=== PATIENT | female | born 1985 | race Caucasian/White ===

== ENCOUNTER 2020-01-18 04:50 | Inpatient (IN) | payer BC ==
[~2020-01-18 04:50] MED LIST: Sodium Chloride 0.9% 10 ML Syringe FLUSH PRN; ceFAZolin 2 GM in Premix Bag 1 BAG IV ONE
[2020-01-18] MEDS: Lactated Ringers 1,000 ML IV SCH ×2 (05:30→06:15)
[2020-01-18] MEDS ORDERED: Citric Acid/Sodium Citrate Solution 30 ML Cup PO ONE (06:30)
[2020-01-18] MEDS ORDERED: Metoclopramide 10 MG/2 ML SDV IVPUSH ONE (06:30)
[2020-01-18] MEDS ORDERED: Citric Acid/Sodium Citrate Solution 30 ML Cup ONE (07:06)
[2020-01-18] MEDS ORDERED: Metoclopramide 10 MG/2 ML SDV ONE (07:06)
--- NOTE | 2020-01-18 07:08 | PCM.OPNOTE ---
- General Post-Op/Procedure Note Date of Surgery/Procedure: 01/18/20 Operative Procedure(s): Primary low transverse Findings: Baby girl in breech presentation. Weight of 6 lbs 11 oz. APGARS of 8 & 9. Normal appearance of the uterus, fallopian tubes, and ovaries. Pre Op Diagnosis: 39 0/7 wks. Breech presentation Post-Op Diagnosis: Same Anesthesia Technique: Spinal Primary Surgeon: Pricilla Guallpa Secondary Surgeon: Marly Dhaliwal Anesthesia Provider: Annabelle Regan Reason Perinatal Educator Was Necessary: Speed, safety of procedure Pathology: Cord blood collected. Placenta discarded Fluid Replacement, Intraop: 2,100 Output, Urine Amount: 100 EBL in mLs: 500 Complications: None Condition: Good Free Text/Narrative:: The risks, benefits, indications, potential complications, and alternatives were explained to the patient and informed consent obtained. After induction of anesthesia, the patient was placed in a supine position and then draped and prepped in the usual sterile manner. A Pfannenstiel incision was made and carried down through the subcutaneous tissue to the fascia. Fascial incision was made and extended transversely. The fascia was from the underlying rectus tissue superiorly and inferiorly. The peritoneum was identified and entered. Peritoneal incision was extended longitudinally. The utero-vesical peritoneal reflection was incised transversely and the bladder flap was bluntly freed from the lower uterine segment. A low transverse uterine incision was made sharply with a scalpel and extended bluntly in a cephalocaudad direction. A baby girl was delivered from breech presentation with APGARS as above. After the umbilical cord was clamped and cut cord blood was obtained for evaluation. The placenta was removed intact and appeared normal. The uterus was exteriorized and cleared of clots. The uterine outline, tubes and ovaries appeared normal. The uterine incision was closed with running locked sutures of 0 Vicryl. Hemostasis was obtained with a second imbricating layer of 0 Vicryl in addition to several sutures placed in figure of eight fashion. The uterus was then placed back into the abdomen. The infracolic gutters were cleared of blood clots. The fascia was then reapproximated with running sutures of 0 Vicryl. The subcutaneous tissue was irrigated with sterile warm normal saline, hemostasis obtained with cautery. This layer was also closed with a running 0 Vicryl. The skin was reapproximated with running Subcuticular 4-0 Monocryl sutures. Instrument, sponge, and needle counts were correct prior the abdominal closure and at the conclusion of the case.
[2020-01-18] MEDS ORDERED: ceFAZolin 1 GM Vial ONE (07:09)
[2020-01-18] MEDS ORDERED: Lactated Ringers 2,000 ML ONE (07:09)
[2020-01-18] MEDS ORDERED: Ketorolac 30 MG/ML SDV ONE (07:09)
[2020-01-18] MEDS ORDERED: Oxytocin 10 Units/1 ML SDV ONE (07:09)
[2020-01-18] MEDS ORDERED: Ondansetron 4 MG/2 ML SDV ONE (07:09)
[2020-01-18] MEDS ORDERED: Morphine PF 10 MG/10 ML SDV ONE (07:09)
[2020-01-18] MEDS ORDERED: Oxytocin/Lactated Ringers 10 UNIT/1,000 ML BAG IV SCH (07:30)
[2020-01-18] MEDS ORDERED: Ondansetron 4 MG/2 ML SDV IVPUSH PRN (07:34)
[2020-01-18] MEDS ORDERED: fentaNYL 100 MCG/2 ML SDV IVPUSH PRN (07:34)
[2020-01-18] MEDS ORDERED: diphenhydrAMINE 50 MG/ML SDV IVPUSH PRN ×2 (07:34→09:49)
--- NOTE | 2020-01-18 07:34 | PCM.PREANE ---
Preanesthetic Assessment - Procedure Proposed Procedure: C Section - Anesthesia/Transfusion/Family Hx Anesthesia History: Prior Anesthesia Without Reaction Family History of Anesthesia Reaction: No Transfusion History: Prior Transfusion Without Reaction - Review of Systems General: No Symptoms Pulmonary: No Symptoms Cardiovascular: No Symptoms Gastrointestinal: No Symptoms Neurological: No Symptoms Other: Reports: None - Physical Assessment NPO Status Date: 01/17/20 NPO Status Time: 22:00 Vital Signs: Last Vital Signs Temp 36.8 C 01/18/20 05:13 Pulse 81 01/18/20 05:13 Resp 16 01/18/20 05:13 BP 125/78 01/18/20 05:13 Pulse Ox 98 01/18/20 05:13 Height: 1.73 m Weight: 85.094 kg ASA Class: 2 Mental Status: Alert & Oriented x3 Airway Class: Mallampati = 1 Dentition: Reports: Normal Dentition Thyro-Mental Finger Breadths: 3 Mouth Opening Finger Breadths: 3 ROM/Head Extension: Full Lungs: Clear to Auscultation, Normal Respiratory Effort Cardiovascular: Regular Rate, Regular Rhythm - Lab Values: Laboratory Last Values WBC 9.60 K/mm3 (3.98-10.04) 01/18/20 05:45 RBC 3.62 M/mm3 (3.98-5.22) L 01/18/20 05:45 Hgb 11.1 gm/dl (11.2-15.7) L 01/18/20 05:45 Hct 34.1 % (34.1-44.9) 01/18/20 05:45 MCV 94.2 fl (79.4-94.8) 01/18/20 05:45 MCH 30.7 pg (25.6-32.2) 01/18/20 05:45 MCHC 32.6 g/dl (32.2-35.5) 01/18/20 05:45 RDW Std Deviation 43.8 fL (36.4-46.3) 01/18/20 05:45 Plt Count 159 K/mm3 (182-369) L 01/18/20 05:45 MPV 11.7 fl (9.4-12.3) 01/18/20 05:45 Neut % (Auto) 72.6 % (34.0-71.1) H 01/18/20 05:45 Lymph % (Auto) 17.0 % (19.3-51.7) L 01/18/20 05:45 [place] % (Auto) 8.6 % (4.7-12.5) 01/18/20 05:45 Eos % (Auto) 1.0 (0.7-5.8) 01/18/20 05:45 Baso % (Auto) 0.4 % (0.1-1.2) 01/18/20 05:45 Neut # (Auto) 6.96 K/mm3 (1.56-6.13) H 01/18/20 05:45 Lymph # (Auto) 1.63 K/mm3 (1.18-3.74) 01/18/20 05:45 [place] # (Auto) 0.83 K/mm3 (0.24-0.36) H 01/18/20 05:45 Eos # (Auto) 0.10 K/mm3 (0.04-0.36) 01/18/20 05:45 Baso # (Auto) 0.04 K/mm3 (0.01-0.08) 01/18/20 05:45 SARS-CoV-2 RNA (NGUYEN) Negative (NEGATIVE) 01/18/20 05:00 - Allergies Allergies/Adverse Reactions: Allergies Allergy/AdvReac Type Severity Reaction Status Date / Time latex Allergy Hives Verified 01/18/20 05:48 - Anesthesia Plan Pre-Op Medication Ordered: Antacids - Acknowledgements Anesthesia Type Planned: Spinal Pt an Appropriate Candidate for the Planned Anesthesia: Yes Alternatives and Risks of Anesthesia Discussed w Pt/Guardian: Yes Pt/Guardian Understands and Agrees with Anesthesia Plan: Yes PreAnesthesia Questionnaire MOBILITY ENGINEER History: Reports: Other OB/BYN History: Breech presentation- failed version. - SUBSTANCE USE Tobacco Use Status *Q: Never Tobacco User Tobacco Use Within Last Twelve Months: No Second Hand Smoke Exposure: No Recreational Drug Use History: No - HOME MEDS Home Medications: Home Meds Pnv No.95/Ferrous Fum/Folic AC [ Tablet] 1 tab PO DAILY 01/17/20 [History] - CURRENT (IN HOUSE) MEDS Current Meds: Current Medications Oxytocin/Lactated Ringer's (Pitocin In Lr 10 Units/1,000 Ml) 10 unit in 1,000 mls @ 100 mls/hr IV ASDIRECTED RODOLFO; Protocol Lactated Ringer's (Ringers, Lactated) 1,000 mls @ 125 mls/hr IV ASDIRECTED RODOLFO Last Admin: 01/18/20 06:15 Dose: 900 mls/hr Documented by: Sodium Chloride (Saline Flush) 10 ml FLUSH ASDIRECTED PRN PRN Reason: Keep Vein Open Discontinued Medications Cefazolin Sodium (Ancef) Confirm Administered Dose 2 gm .ROUTE .STK-MED ONE Stop: 01/18/20 07:10 Citric Acid/Sodium Citrate (Bicitra Solution) 30 ml PO ONETIME ONE Stop: 01/18/20 06:31 Last Admin: 01/18/20 07:11 Dose: 30 ml Documented by: Citric Acid/Sodium Citrate (Bicitra Solution) Confirm Administered Dose 30 ml .ROUTE .STK-MED ONE Stop: 01/18/20 07:07 Cefazolin Sodium/Dextrose 2 gm (/ Premix) 50 mls @ 100 mls/hr IV ONETIME ONE Stop: 01/18/20 05:00 Lactated Ringer's (Ringers, Lactated) Confirm Administered Dose 2,000 mls @ as directed .ROUTE .STK-MED ONE Stop: 01/18/20 07:10 Ketorolac Tromethamine (Toradol) Confirm Administered Dose 30 mg .ROUTE .STK-MED ONE Stop: 01/18/20 07:10 Metoclopramide HCl (Reglan) 10 mg IVPUSH ONETIME ONE Stop: 01/18/20 06:31 Last Admin: 01/18/20 07:11 Dose: 10 mg Documented by: Metoclopramide HCl (Reglan) Confirm Administered Dose 10 mg .ROUTE .STK-MED ONE Stop: 01/18/20 07:07 Morphine Sulfate (Duramorph Pf) Confirm Administered Dose 10 mg .ROUTE .STK-MED ONE Stop: 01/18/20 07:10 Ondansetron HCl (Zofran) Confirm Administered Dose 4 mg .ROUTE .STK-MED ONE Stop: 01/18/20 07:10 Oxytocin (Pitocin) Confirm Administered Dose 20 unit .ROUTE .STK-MED ONE Stop: 01/18/20 07:10
--- NOTE | 2020-01-18 08:44 | PCM.POSTAN ---
POST ANESTHESIA ASSESSMENT - MENTAL STATUS Mental Status: Alert, Oriented - VITAL SIGNS Vital Signs: Last Vital Signs Temp 36.8 C 01/18/20 05:13 Pulse 81 01/18/20 05:13 Resp 16 01/18/20 05:13 BP 125/78 01/18/20 05:13 Pulse Ox 98 01/18/20 05:13 0839 116/70 71 16 98% 97.3F - RESPIRATORY Respiratory Status: Respiratory Rate WNL, Airway Patent, O2 Saturation Stable - CARDIOVASCULAR CV Status: Pulse Rate WNL, Blood Pressure Stable - GASTROINTESTINAL GI Status: No Symptoms - PAIN Pain Score: 0 - POST OP HYDRATION Hydration Status: Adequate & Stable
[2020-01-18] MEDS ORDERED: Ibuprofen 600 MG Tab PO PRN (09:49)
[2020-01-18] MEDS ORDERED: Ondansetron 4 MG/2 ML SDV IV PRN (09:49)
[2020-01-18] MEDS ORDERED: Docusate Sodium 100 MG Cap PO PRN (09:49)
[2020-01-18] MEDS ORDERED: Acetaminophen/oxyCODONE 325-5 MG Tab PO PRN (09:49)
[2020-01-18] MEDS ORDERED: Dextrose 5%-Lactated Ringers 1,000 ML IV SCH (09:49)
[2020-01-18] MEDS: Ketorolac 30 MG/ML SDV IVPUSH SCH ×2 (14:44→21:09)
[2020-01-19] MEDS: Ketorolac 30 MG/ML SDV IVPUSH SCH (03:04)
--- NOTE | 2020-01-19 06:14 | PCM48HPAN ---
Post Anesthesia Note - EVALUATION WITHIN 48HRS OF ANESTHETIC Vital Signs in Normal Range: Yes Patient Participated in Evaluation: Yes Respiratory Function Stable: Yes Airway Patent: Yes Cardiovascular Function Stable: Yes Hydration Status Stable: Yes Pain Control Satisfactory: Yes Nausea and Vomiting Control Satisfactory: Yes Mental Status Recovered: Yes Vital Signs: Last Vital Signs Temp 97.9 F 01/19/20 03:54 Pulse 67 01/19/20 03:54 Resp 16 01/19/20 03:54 BP 114/70 01/19/20 03:54 Pulse Ox 100 01/19/20 03:54
--- NOTE | 2020-01-19 07:09 | PCM.PNPP ---
- General Info Date of Service: 01/19/20 Functional Status: Reports: Pain Controlled, Tolerating Diet, Ambulating, Urinating - Review of Systems General: Reports: No Symptoms Pulmonary: Reports: No Symptoms Cardiovascular: Reports: No Symptoms Gastrointestinal: Reports: No Symptoms Genitourinary: Reports: No Symptoms Musculoskeletal: Reports: No Symptoms Neurological: Reports: No Symptoms - Patient Data Vital Signs - Most Recent: Last Vital Signs Temp 36.6 C 01/19/20 03:54 Pulse 67 01/19/20 03:54 Resp 16 01/19/20 03:54 BP 114/70 01/19/20 03:54 Pulse Ox 100 01/19/20 03:54 Weight - Most Recent: 85.094 kg I&O - Last 24 Hours: Intake & Output 01/18/20 01/19/20 01/19/20 22:59 06:59 14:59 Intake Total 1000 Output Total 2250 1800 Balance -1250 -1800 Lab Results - Last 24 Hours: Laboratory Results - last 24 hr 01/18/20 01/18/20 01/19/20 Range/Units 05:45 05:45 05:22 WBC 14.01 H (3.98-10.04) K/mm3 RBC 3.44 L (3.98-5.22) M/mm3 Hgb 10.5 L (11.2-15.7) gm/dl Hct 32.7 L (34.1-44.9) % MCV 95.1 H (79.4-94.8) fl MCH 30.5 (25.6-32.2) pg MCHC 32.1 L (32.2-35.5) g/dl RDW Std Deviation 44.0 (36.4-46.3) fL Plt Count 169 L (182-369) K/mm3 MPV 12.2 (9.4-12.3) fl RPR Non-reactive (NONREACTIVE) Blood Type A POSITIVE Gel Antibody Screen Negative Med Orders - Current: Current Medications Diphenhydramine HCl (Benadryl) 25 mg IVPUSH Q6H PRN PRN Reason: Pruritis Diphenhydramine HCl (Benadryl) 25 mg IVPUSH Q6H PRN PRN Reason: Itching or Nausea Docusate Sodium (Colace) 100 mg PO Q12H PRN PRN Reason: Constipation Fentanyl (Sublimaze) 50 mcg IVPUSH Q5M PRN PRN Reason: Pain Ibuprofen (Motrin) 600 mg PO Q6H PRN PRN Reason: mild pain or fever Ondansetron HCl (Zofran) 4 mg IVPUSH ONETIME PRN PRN Reason: Nausea/Vomiting Ondansetron HCl (Zofran) 4 mg IV Q8H PRN PRN Reason: Nausea/Vomiting Oxycodone/Acetaminophen (Percocet 325-5 Mg) 1 tab PO Q4H PRN PRN Reason: Pain (moderate 4-6) Oxycodone/Acetaminophen (Percocet 325-5 Mg) 2 tab PO Q4H PRN PRN Reason: Pain (severe 7-10) Discontinued Medications Cefazolin Sodium (Ancef) Confirm Administered Dose 2 gm .ROUTE .STK-MED ONE Stop: 01/18/20 07:10 Citric Acid/Sodium Citrate (Bicitra Solution) 30 ml PO ONETIME ONE Stop: 01/18/20 06:31 Last Admin: 01/18/20 07:11 Dose: 30 ml Documented by: Citric Acid/Sodium Citrate (Bicitra Solution) Confirm Administered Dose 30 ml .ROUTE .STK-MED ONE Stop: 01/18/20 07:07 Last Admin: 01/18/20 15:46 Dose: Not Given Documented by: Cefazolin Sodium/Dextrose 2 gm (/ Premix) 50 mls @ 100 mls/hr IV ONETIME ONE Stop: 01/18/20 05:00 Last Admin: 01/18/20 15:46 Dose: Not Given Documented by: Oxytocin/Lactated Ringer's (Pitocin In Lr 10 Units/1,000 Ml) 10 unit in 1,000 mls @ 100 mls/hr IV ASDIRECTED RODOLFO; Protocol Lactated Ringer's (Ringers, Lactated) 1,000 mls @ 125 mls/hr IV ASDIRECTED [facility]OLFO Last Admin: 01/18/20 06:15 Dose: 900 mls/hr Documented by: Lactated Ringer's (Ringers, Lactated) Confirm Administered Dose 2,000 mls @ as directed .ROUTE .STK-MED ONE Stop: 01/18/20 07:10 Dextrose/Lactated Ringer's (Dextrose 5%-Lactated Ringers) 1,000 mls @ 125 mls/hr IV ASDIRECTED [facility]FO Stop: 01/18/20 17:48 Last Admin: 01/18/20 14:58 Dose: 125 mls/hr Documented by: Ibuprofen (Motrin) 600 mg PO Q6H PRN PRN Reason: mild pain or fever Ketorolac Tromethamine (Toradol) Confirm Administered Dose 30 mg .ROUTE .STK-MED ONE Stop: 01/18/20 07:10 Ketorolac Tromethamine (Toradol) 30 mg IVPUSH Q6H RODOLFO Stop: 01/19/20 02:31 Last Admin: 01/19/20 03:04 Dose: 30 mg Documented by: Metoclopramide HCl (Reglan) 10 mg IVPUSH ONETIME ONE Stop: 01/18/20 06:31 Last Admin: 01/18/20 07:11 Dose: 10 mg Documented by: Metoclopramide HCl (Reglan) Confirm Administered Dose 10 mg .ROUTE .STK-MED ONE Stop: 01/18/20 07:07 Last Admin: 01/18/20 15:46 Dose: Not Given Documented by: Miscellaneous Medication (Phenylephrine 1 Mg/10 Ml-Ns) Confirm Administered Dose 1 mg .ROUTE .STK-MED ONE Stop: 01/18/20 08:37 Morphine Sulfate (Duramorph Pf) Confirm Administered Dose 10 mg .ROUTE .STK-MED ONE Stop: 01/18/20 07:10 Ondansetron HCl (Zofran) Confirm Administered Dose 4 mg .ROUTE .STK-MED ONE Stop: 01/18/20 07:10 Oxytocin (Pitocin) Confirm Administered Dose 20 unit .ROUTE .STK-MED ONE Stop: 01/18/20 07:10 Sodium Chloride (Saline Flush) 10 ml FLUSH ASDIRECTED PRN PRN Reason: Keep Vein Open - Infant Interaction Disposition, : [place] in Room with Family Interaction: Holding Infant Feeding: Attempted ; Nursed Fair/Poor Support Person: - Recovery Exam Fundal Tone: Firm Fundal Level: At Umbilicus Fundal Placement: Midline Lochia Amount: Scant, Small Lochia Color: Rubra/Red Perineum Description: Intact, Minimal Bruising/Swelling Episiotomy/Laceration: None Bladder Status: Indwelling Catheter in Place Urinary Elimination: Other (see below) Other Urinary Elimination, : Due to void - Exam General: Alert, Oriented, Cooperative Lungs: Clear to Auscultation, Normal Respiratory Effort Cardiovascular: Regular Rate, Regular Rhythm GI/Abdominal Exam: Soft, Non-Tender Extremities: Normal Inspection Skin: Warm, Dry, Intact Wound/Incisions: Healing Well, No Drainage - Problem List & Annotations (1) 39 weeks gestation of SNOMED Code(s): 19829115 Code(s): Z3A.39 - 39 WEEKS GESTATION OF Status: Acute Current Visit: Yes (2) Breech presentation SNOMED Code(s): 3732043 Code(s): O32.1XX0 - MATERNAL CARE FOR BREECH PRESENTATION, UNSP Status: Acute Current Visit: Yes Qualifiers: Fetus number: single or unspecified fetus Qualified Code(s): O32.1XX0 - Maternal care for breech presentation, not applicable or unspecified (3) S/P primary low transverse SNOMED Code(s): 376268878, 67527975, 363796280, 793097995, 065791040 Code(s): Z98.891 - HISTORY OF UTERINE SCAR FROM PREVIOUS SURGERY Status: Acute Current Visit: Yes - Problem List Review Problem List Initiated/Reviewed/Updated: Yes - My Orders Last 24 Hours: My Active Orders 01/18/20 Breakfast Regular Diet [DIET] 01/18/20 09:49 Acetaminophen/oxyCODONE [Percocet 325-5 MG] 1 tab PO Q4H PRN Acetaminophen/oxyCODONE [Percocet 325-5 MG] 2 tab PO Q4H PRN Docusate Sodium [Colace] 100 mg PO Q12H PRN Ondansetron [Zofran] 4 mg IV Q8H PRN diphenhydrAMINE [Benadryl] 25 mg IVPUSH Q6H PRN 01/18/20 09:49 Activity as Tolerated [RC] .Routine Antiembolic Devices [RC] PER UNIT ROUTINE Communication Order [RC] PER UNIT ROUTINE Intake and Output [RC] Q4HR May Shower [RC] PER UNIT ROUTINE Notify Provider Intake and Out [RC] ASDIRECTED RT Incentive Spirometry [RC] Q2HWA Assess Lochia [WOMSER] Per Unit Routine Assess Uterine Involution [WOMSER] Per Unit Routine Breast Pump [WOMSER] Per Unit Routine Heat Therapy [OM.PC] Per Unit Routine Peripheral IV Discontinue [OM.PC] Routine Sequential Compression Device [OM.PC] Per Unit Routine 01/19/20 08:30 Ibuprofen [Motrin] 600 mg PO Q6H PRN - Assessment Assessment:: PPD#1 - Plan Plan:: * Routine cares * Breast feeding * Discharge home in 1-2 days
[2020-01-19] MEDS: Ibuprofen 600 MG Tab PO PRN ×2 (11:55→19:25)
[2020-01-19] MEDS: Acetaminophen/oxyCODONE 325-5 MG Tab PO PRN ×2 (15:39→21:38)
[2020-01-20] MEDS: Ibuprofen 600 MG Tab PO PRN ×2 (03:42→10:38)
--- NOTE | 2020-01-20 08:42 | PCM.DCSUM1 ---
Discharge Summary - Hospital Course Diagnosis: Stroke: No - Discharge Data Discharge Date: 01/20/20 Discharge Disposition: Home, Self-Care 01 Condition: Good - Referral to Home Health Primary Care Physician: Pricilla Guallpa MD - Patient Summary/Data Operative Procedure(s) Performed: Primary low transverse - Discharge Plan *PRESCRIPTION DRUG MONITORING PROGRAM REVIEWED*: No *COPY OF PRESCRIPTION DRUG MONITORING REPORT IN PATIENT DARCY: No Home Medications: Home Meds Pnv No.95/Ferrous Fum/Folic AC [ Tablet] 1 tab PO DAILY 01/17/20 [History] Referrals: Pricilla Guallpa MD [Primary Care Provider] - (2 weeks) - Discharge Summary/Plan Comment DC Time >30 min.: No - General Info Date of Service: 01/20/20 Functional Status: Reports: Pain Controlled - Review of Systems General: Reports: No Symptoms HEENT: Reports: No Symptoms Pulmonary: Reports: No Symptoms Cardiovascular: Reports: No Symptoms Gastrointestinal: Reports: No Symptoms Genitourinary: Reports: No Symptoms Musculoskeletal: Reports: No Symptoms Skin: Reports: No Symptoms Neurological: Reports: No Symptoms Psychiatric: Reports: No Symptoms - Patient Data Vitals - Most Recent: Last Vital Signs Temp 37.7 C 01/20/20 03:25 Pulse 58 L 01/20/20 03:25 Resp 14 01/20/20 03:25 BP 127/75 01/20/20 03:25 Pulse Ox 98 01/20/20 03:25 Weight - Most Recent: 85.094 kg Med Orders - Current: Current Medications Diphenhydramine HCl (Benadryl) 25 mg IVPUSH Q6H PRN PRN Reason: Itching or Nausea Docusate Sodium (Colace) 100 mg PO Q12H PRN PRN Reason: Constipation Ibuprofen (Motrin) 600 mg PO Q6H PRN PRN Reason: mild pain or fever Last Admin: 01/20/20 03:42 Dose: 600 mg Documented by: Ondansetron HCl (Zofran) 4 mg IV Q8H PRN PRN Reason: Nausea/Vomiting Oxycodone/Acetaminophen (Percocet 325-5 Mg) 1 tab PO Q4H PRN PRN Reason: Pain (moderate 4-6) Last Admin: 01/19/20 21:38 Dose: 1 tab Documented by: Oxycodone/Acetaminophen (Percocet 325-5 Mg) 2 tab PO Q4H PRN PRN Reason: Pain (severe 7-10) Discontinued Medications Cefazolin Sodium (Ancef) Confirm Administered Dose 2 gm .ROUTE .STK-MED ONE Stop: 01/18/20 07:10 Citric Acid/Sodium Citrate (Bicitra Solution) 30 ml PO ONETIME ONE Stop: 01/18/20 06:31 Last Admin: 01/18/20 07:11 Dose: 30 ml Documented by: Citric Acid/Sodium Citrate (Bicitra Solution) Confirm Administered Dose 30 ml .ROUTE .STK-MED ONE Stop: 01/18/20 07:07 Last Admin: 01/18/20 15:46 Dose: Not Given Documented by: Diphenhydramine HCl (Benadryl) 25 mg IVPUSH Q6H PRN PRN Reason: Pruritis Fentanyl (Sublimaze) 50 mcg IVPUSH Q5M PRN PRN Reason: Pain Cefazolin Sodium/Dextrose 2 gm (/ Premix) 50 mls @ 100 mls/hr IV ONETIME ONE Stop: 01/18/20 05:00 Last Admin: 01/18/20 15:46 Dose: Not Given Documented by: Oxytocin/Lactated Ringer's (Pitocin In Lr 10 Units/1,000 Ml) 10 unit in 1,000 mls @ 100 mls/hr IV ASDIRECTED [facility]; Protocol Lactated Ringer's (Ringers, Lactated) 1,000 mls @ 125 mls/hr IV ASDIRECTED [facility] Last Admin: 01/18/20 06:15 Dose: 900 mls/hr Documented by: Lactated Ringer's (Ringers, Lactated) Confirm Administered Dose 2,000 mls @ as directed .ROUTE .STK-MED ONE Stop: 01/18/20 07:10 Dextrose/Lactated Ringer's (Dextrose 5%-Lactated Ringers) 1,000 mls @ 125 mls/hr IV ASDIRECTED RODOLFO Stop: 01/18/20 17:48 Last Admin: 01/18/20 14:58 Dose: 125 mls/hr Documented by: Ibuprofen (Motrin) 600 mg PO Q6H PRN PRN Reason: mild pain or fever Ketorolac Tromethamine (Toradol) Confirm Administered Dose 30 mg .ROUTE .STK-MED ONE Stop: 01/18/20 07:10 Ketorolac Tromethamine (Toradol) 30 mg IVPUSH Q6H RODOLFO Stop: 01/19/20 02:31 Last Admin: 01/19/20 03:04 Dose: 30 mg Documented by: Metoclopramide HCl (Reglan) 10 mg IVPUSH ONETIME ONE Stop: 01/18/20 06:31 Last Admin: 01/18/20 07:11 Dose: 10 mg Documented by: Metoclopramide HCl (Reglan) Confirm Administered Dose 10 mg .ROUTE .STK-MED ONE Stop: 01/18/20 07:07 Last Admin: 01/18/20 15:46 Dose: Not Given Documented by: Miscellaneous Medication (Phenylephrine 1 Mg/10 Ml-Ns) Confirm Administered Dose 1 mg .ROUTE .STK-MED ONE Stop: 01/18/20 08:37 Morphine Sulfate (Duramorph Pf) Confirm Administered Dose 10 mg .ROUTE .STK-MED ONE Stop: 01/18/20 07:10 Ondansetron HCl (Zofran) Confirm Administered Dose 4 mg .ROUTE .STK-MED ONE Stop: 01/18/20 07:10 Ondansetron HCl (Zofran) 4 mg IVPUSH ONETIME PRN PRN Reason: Nausea/Vomiting Oxytocin (Pitocin) Confirm Administered Dose 20 unit .ROUTE .STK-MED ONE Stop: 01/18/20 07:10 Sodium Chloride (Saline Flush) 10 ml FLUSH ASDIRECTED PRN PRN Reason: Keep Vein Open - Exam General: Reports: Alert, Oriented HEENT: Reports: Pupils Equal, Pupils Reactive, EOMI, Mucous Membr. Moist/[place] Neck: Reports: Supple Lungs: Reports: Clear to Auscultation, Normal Respiratory Effort Cardiovascular: Reports: Regular Rate, Regular Rhythm GI/Abdominal Exam: Normal Bowel Sounds, Soft, Non-Tender, No Organomegaly, No Distention, No Abnormal Bruit, No Mass, Pelvis Stable (Female) Exam: Normal External Exam, Normal Speculum Exam, Normal Bimanual Exam Rectal (Female) Exam: Normal Exam, Normal Rectal Tone Back Exam: Reports: Normal Inspection, Full Range of Motion Extremities: Normal Inspection, Normal Range of Motion, Non-Tender, No Pedal Edema, Normal Capillary Refill Skin: Reports: Warm, Dry, Intact Wound/Incisions: Reports: Healing Well Neurological: Reports: No New Focal Deficit Psy/Mental Status: Reports: Alert, Normal Affect, Normal Mood
== END 2020-01-20 14:58 | disposition home or self-care (01) | DRG 540 ==
LOC: JD.OB 04:50
PROVIDERS: ADMIT Obstetrics & Gynecology; ATTEND Obstetrics & Gynecology
PROC: 10D00Z1 Extraction of Products of Conception, Low, Open Approach (ICD-10-PCS; principal; 2020-01-18)
DX: O32.1XX0 Maternal care for breech presentation, not applicable or unspecified (principal); Z3A.39 39 weeks gestation of pregnancy; Z37.0 Single live birth; Z20.828 Contact with and (suspected) exposure to other viral communicable diseases
CPT/HCPCS: 01961; 36415; 59025; 85025; 85027; 86592; 86850; 86900; 86901; A9270-GY; J0690; J1885; J2270; J2370; J2405; J2590; J2765; J7120; J7121; U0002

== ENCOUNTER 2021-09-12 02:48 | Inpatient (IN) | payer BC ==
[2021-09-12] MEDS ORDERED: Sodium Chloride 0.9% 10 ML Syringe FLUSH PRN (11:21)
[2021-09-12] MEDS ORDERED: Nalbuphine HCl 10 MG/ 1ML Amp IVPUSH PRN (11:21)
[2021-09-12] MEDS ORDERED: Ondansetron 4 MG/2 ML SDV IVPUSH PRN (11:21)
[2021-09-12] MEDS ORDERED: Oxytocin/Lactated Ringers 10 UNIT/1,000 ML BAG IV SCH ×2 (11:30)
[2021-09-12] MEDS ORDERED: Lidocaine 1% 50 ML MDV INJECT ONE (12:00)
[2021-09-12] MEDS: Lactated Ringers 1,000 ML IV SCH ×3 (12:38→23:51)
[2021-09-12] MEDS ORDERED: Sodium Chloride 0.9% 10 ML Syringe FLUSH SCH (21:00)
[2021-09-12] MEDS ORDERED: fentaNYL 100 MCG/2 ML SDV EPIDUR PRN (22:39)
[2021-09-12] MEDS ORDERED: diphenhydrAMINE 50 MG/ML SDV IVPUSH PRN (22:39)
[2021-09-12] MEDS ORDERED: ePHEDrine 50 MG/ML SDV IVPUSH PRN (22:39)
[2021-09-12] MEDS ORDERED: Bupivacaine/fentaNYL/NS 100 ML Bag EPIDUR PRN (22:39)
[2021-09-12] MEDS ORDERED: fentaNYL 100 MCG/2 ML SDV ONE (22:43)
[2021-09-13] MEDS ORDERED: Bupivacaine 0.25% 10 ML SDV ONE
[2021-09-13] MEDS: Lactated Ringers 1,000 ML IV SCH (02:11)
[2021-09-13] MEDS ORDERED: Benzocaine/Menthol 20%-0.5% Spray 78 GM Cannister TOP PRN (03:26)
[2021-09-13] MEDS ORDERED: Witch Hazel Medicated Pads 40/Jar TOP PRN (03:26)
[2021-09-13] MEDS ORDERED: Acetaminophen 325 MG Tab PO PRN (03:26)
[2021-09-13] MEDS: Ibuprofen 600 MG Tab PO PRN ×2 (04:43→23:43)
[2021-09-13] MEDS: Docusate Sodium 100 MG Cap PO PRN (04:44)
[2021-09-14] MEDS: Docusate Sodium 100 MG Cap PO PRN (08:10)
== END 2021-09-14 10:20 | disposition home or self-care (01) | DRG 560 ==
LOC: JD.OB 02:48 → OBSVTOIN 09-13 02:48 → JD.OB 09-13 02:49
PROVIDERS: ADMIT Obstetrics & Gynecology; ATTEND Obstetrics & Gynecology
PROC: 10907ZC Drainage of Amniotic Fluid, Therapeutic from Products of Conception, Via Natural or Artificial Opening (ICD-10-PCS; principal; 2021-09-13)
PROC: 10E0XZZ Delivery of Products of Conception, External Approach (ICD-10-PCS; 2021-09-13)
PROC: 0KQM0ZZ Repair Perineum Muscle, Open Approach (ICD-10-PCS; 2021-09-13)
PROC: 3E033VJ Introduction of Other Hormone into Peripheral Vein, Percutaneous Approach (ICD-10-PCS; 2021-09-13)
PROC: 3E0R3BZ Introduction of Anesthetic Agent into Spinal Canal, Percutaneous Approach (ICD-10-PCS; 2021-09-13)
PROC: 00HU33Z Insertion of Infusion Device into Spinal Canal, Percutaneous Approach (ICD-10-PCS; 2021-09-13)
DX: O13.4 Gestational [pregnancy-induced] hypertension without significant proteinuria, complicating childbirth (principal); Z3A.39 39 weeks gestation of pregnancy; Z37.0 Single live birth; Z98.891 History of uterine scar from previous surgery; O70.1 Second degree perineal laceration during delivery; Z91.040 Latex allergy status
CPT/HCPCS: 01967; 36415; 51701; 51702; 59025; 59409; 82565; 82570; 83615; 84156; 84450; 84460; 84520; 84550; 85025; 86592; 86850; 86900; 86901; A9270-GY; C1726; J2590; J3010; J3490; J7120

== ENCOUNTER 2023-09-23 06:50 | Inpatient (IN) | payer BC ==
[~2023-09-23 06:50] MED LIST changes: +Bupivacaine 0.25% 10 ML SDV ONE; -Sodium Chloride 0.9% 10 ML Syringe FLUSH PRN; -ceFAZolin 2 GM in Premix Bag 1 BAG IV ONE
[2023-09-23] MEDS ORDERED: Nalbuphine 10 MG/ML Syringe IVPUSH PRN (07:01)
[2023-09-23] MEDS ORDERED: Ondansetron 4 MG/2 ML SDV IVPUSH PRN (07:01)
[2023-09-23] MEDS ORDERED: Lidocaine 1% 50 ML MDV INJECT PRN (07:01)
[2023-09-23] MEDS ORDERED: Sodium Chloride 0.9% 10 ML Syringe FLUSH PRN (07:01)
[2023-09-23] MEDS ORDERED: Oxytocin/Lactated Ringers 30 UNIT/500 ML BAG IV SCH (07:15)
[2023-09-23 07:24] LABS: BASOPHILS ABSOLUTE AUTO 0.1 K/mm3 (0.0-0.2); BASOPHILS PERCENT AUTO 0.6 % (0.0-1.0); EOSINOPHILS ABSOLUTE AUTO 0.1 K/mm3 (0.0-0.4); EOSINOPHILS PERCENT AUTO 1.6 % (0.0-6.0); HEMATOCRIT 32.6 % (37.0-47.0); HEMOGLOBIN 10.5 gm/dl (12.0-16.0); IMMATURE GRAN ABSOLUTE AUTO 0.04 K/mm3 (0.00-0.05); IMMATURE GRAN PERCENT AUTO 0.5 % (0.0-0.4); LYMPHOCYTES ABSOLUTE AUTO 1.8 K/mm3 (1.0-4.8); LYMPHOCYTES PERCENT AUTO 21.2 % (24.0-44.0); MEAN CORPUSCULAR HEMOGLOBIN 27.1 pg (28.0-32.0); MEAN CORPUSCULAR HGB CONC 32.2 g/dl (32.0-36.0); MEAN PLATELET VOLUME 12.8 fl (9.4-12.3); MONOCYTES ABSOLUTE AUTO 0.7 K/mm3 (0.0-0.8); MONOCYTES PERCENT AUTO 8.9 % (0.0-8.0); NEUTROPHILS ABSOLUTE AUTO 5.6 K/mm3 (1.8-7.7); NEUTROPHILS PERCENT AUTO 67.2 % (41.0-71.0); PLATELET COUNT,PLT 135 K/mm3 (150-400); RED BLOOD CELL COUNT 3.88 M/mm3 (4.10-5.30); WHITE BLOOD CELL COUNT,WBC 8.29 K/mm3 (3.9-11.3)
[2023-09-23] MEDS ORDERED: ePHEDrine 50 MG/ML SDV IVPUSH PRN (07:37)
[2023-09-23] MEDS ORDERED: diphenhydrAMINE 50 MG/ML SDV IVPUSH PRN (07:37)
[2023-09-23 07:47] LABS: ANION GAP 16.5 (5-15); BLOOD UREA NITROGEN,BUN 8 mg/dL (7-18); CALCIUM 8.6 mg/dL (8.5-10.1); CARBON DIOXIDE,CO2 21 mEq/L (21-32); CHLORIDE,CL 102 mEq/L (98-107); CREATININE 0.8 mg/dL (0.55-1.02); ESTIMATED GFR 98 mL/min (>60); GLUCOSE RANDOM 83 mg/dL (70-99); POTASSIUM,K 3.5 mEq/L (3.5-5.1); SODIUM,NA 136 mEq/L (136-145)
[2023-09-23] MEDS: Oxytocin/Lactated Ringers 30 UNIT/500 ML BAG IV SCH (08:16)
[2023-09-23] MEDS: Lactated Ringers 1,000 ML IV SCH (08:16)
[2023-09-23 08:54] LABS: CREATININE,URINE RAND 29.3 mg/dL (30.0-125.0)
[2023-09-23 08:55] LABS: PROTEIN,URINE RANDOM < 6.0 mg/dL (0.0-11.8)
[2023-09-23] MEDS: Sodium Chloride 0.9% 10 ML Syringe FLUSH SCH (09:29)
[2023-09-23] MEDS: fentaNYL 100 MCG/2 ML SDV EPIDUR PRN (13:44)
[2023-09-23] MEDS: Bupivacaine/fentaNYL/NS 100 ML Bag EPIDUR PRN (13:45)
[2023-09-23] MEDS: Benzocaine/Menthol 20%-0.5% Spray 78 GM Cannister TOP PRN (16:17)
[2023-09-23] MEDS: Witch Hazel Medicated Pads 40/Jar TOP PRN (16:17)
[2023-09-23] MEDS: Ibuprofen 600 MG Tab PO SCH (17:56)
[2023-09-23] MEDS: Acetaminophen 325 MG Tab PO PRN (19:56)
[2023-09-23] MEDS: Docusate Sodium 100 MG Cap PO PRN (21:53)
[2023-09-25 08:56] VITALS: PULSE 72
[2023-09-25 09:11] VITALS: BP 124/67
== END 2023-09-25 09:35 | disposition home or self-care (01) | DRG 560 ==
LOC: JD.OBCHECK 06:50 → JD.OB 06:54 → JD.OBCHECK 06:55 → JD.OB 06:56 → OBSVTOIN 14:23 → JD.OB 14:24
PROVIDERS: ADMIT Obstetrics & Gynecology; ATTEND Obstetrics & Gynecology
PROC: 10E0XZZ Delivery of Products of Conception, External Approach (ICD-10-PCS; principal; 2023-09-23)
PROC: 10907ZC Drainage of Amniotic Fluid, Therapeutic from Products of Conception, Via Natural or Artificial Opening (ICD-10-PCS; 2023-09-23)
PROC: 3E033VJ Introduction of Other Hormone into Peripheral Vein, Percutaneous Approach (ICD-10-PCS; 2023-09-23)
PROC: 0U7C7ZZ Dilation of Cervix, Via Natural or Artificial Opening (ICD-10-PCS; 2023-09-23)
PROC: 0KQM0ZZ Repair Perineum Muscle, Open Approach (ICD-10-PCS; 2023-09-23)
PROC: 3E0R3BZ Introduction of Anesthetic Agent into Spinal Canal, Percutaneous Approach (ICD-10-PCS; 2023-09-23)
PROC: 00HU33Z Insertion of Infusion Device into Spinal Canal, Percutaneous Approach (ICD-10-PCS; 2023-09-23)
DX: O13.4 Gestational [pregnancy-induced] hypertension without significant proteinuria, complicating childbirth (principal); Z37.0 Single live birth; O34.219 Maternal care for unspecified type scar from previous cesarean delivery; O70.1 Second degree perineal laceration during delivery; O69.81X0 Labor and delivery complicated by cord around neck, without compression, not applicable or unspecified; Z3A.37 37 weeks gestation of pregnancy; Z91.040 Latex allergy status; Z87.81 Personal history of (healed) traumatic fracture; Z98.890 Other specified postprocedural states
CPT/HCPCS: 36415; 59025; 59409; 80048; 82570; 84156; 85025; 86592; 86850; 86900; 86901; A9270-GY; J0665; J3010; J3490; J7120; J7999